=== PATIENT | male | born 1950 | race Caucasian/White ===

== ENCOUNTER 2019-05-13 23:51 | Inpatient (IN) ==
[2019-05-13] MEDS ORDERED: Tdap (Boostrix) Vaccine 0.5 ML SYRINGE IM ONE (23:59)
[2019-05-14 01:11] LABS: Basophils % 0.5 %; Eosinophils # 0.1 K/mcL (0.0-0.6); Eosinophils % 1.9 %; Hemoglobin 18.1 g/dL (12.9-16.9); Immature Granulocytes % 0.3 % (0-4); Lymphocytes # 2.4 K/mcL (0.6-4.6); Lymphocytes % 41.9 %; Mean Corpuscular HGB Conc 36.2 g/dL (31.6-35.5); Mean Corpuscular Hemoglobin 38.2 pg (28.0-33.3); Mean Corpuscular Volume 105.5 fL (83.0-100.0); Mean Platelet Volume 10.4 fL (9.4-12.4); Monocytes # 0.5 K/mcL (0.0-1.3); Monocytes % 8.4 %; Neutrophils # 2.7 K/mcL (1.6-8.9); Platelet Count 184 K/mcL (140-400); Red Blood Count 4.74 M/mcL (4.19-5.50); Red Cell Distribution Width 13.6 % (11.5-14.5); White Blood Count 5.7 K/mcL (4.3-11.1)
[2019-05-14 01:29] LABS: Amphetamine Screen,Urine Negative ng/mL (Cutoff=1000); Barbiturate Screen,Urine Negative ng/mL (Cutoff=200); Benzodiazepines Screen,Urine Negative ng/mL (Cutoff=200); Cannabinoid Screen,Urine Negative ng/mL (Cutoff = 50); Cocaine Screen,Urine Negative ng/mL (Cutoff= 300); Opiate Screen,Urine Negative ng/mL (Cutoff=300); Phencyclidine Screen,Urine Negative ng/mL (Cutoff=25)
[2019-05-14 01:33] LABS: BUN/Creatinine Ratio 7 (6-26); Blood Urea Nitrogen 6 mg/dL (8-23); Calcium 8.9 mg/dL (8.6-10.3); Carbon Dioxide 22 mEq/L (23-29); Chloride 103 mEq/L (98-107); Ethanol 260 mg/dL (Less than 10); Glucose 102 mg/dL (70-105); Osmolality,Calculated 278 (280-300); Sodium 135 mEq/L (136-145); Troponin I < 0.03 ng/mL (< 0.04); eGFR For African Americans > 60 (> 60); eGFR For Non-African Americans > 60 (> 60)
[2019-05-14 01:45] LABS: INR 0.9; Prothrombin Time 9.9 Seconds (9.4-12.1)
[2019-05-14] MEDS ORDERED: *HR* LORazepam 2 MG/ML VIAL IM PRN (13:03)
[2019-05-14] MEDS ORDERED: traZODone 50 MG TABLET PO PRN (13:03)
[2019-05-14] MEDS ORDERED: hydrOXYzine pamoate 25 MG CAPSULE PO PRN (13:03)
[2019-05-14] MEDS ORDERED: Acetaminophen 325 MG TABLET PO PRN (13:03)
[2019-05-14] MEDS ORDERED: *HR* LORazepam 1 MG TABLET PO PRN (13:03)
[2019-05-14] MEDS ORDERED: Haloperidol Lactate 5 MG/ML VIAL IM PRN (13:03)
[2019-05-14] MEDS ORDERED: Mag Hydrox/Al Hydrox/Simeth 30 ML UDC PO PRN (13:03)
[2019-05-14] MEDS ORDERED: MOM Conc 10 ML UD.LIQ PO PRN (13:03)
[2019-05-14] MEDS ORDERED: Ondansetron ODT 4 MG TAB.RAPDIS SL ONE (13:09)
[2019-05-14] MEDS: *HR* LORazepam 1 MG TABLET PO SCH ×2 (14:46→20:26)
[2019-05-15] MEDS: *HR* LORazepam 1 MG TABLET PO SCH ×2 (15:21→21:15)
[2019-05-16 09:09] VITALS: BP 162/82
[2019-05-16] MEDS: *HR* LORazepam 1 MG TABLET PO SCH (09:12)
== END 2019-05-16 14:00 | disposition home or self-care (01) | DRG 885 ==
LOC: 1ANU 23:51 → EMEROOARM 23:51 → 1ANU 05-14 14:10
PROVIDERS: ADMIT Psychiatry & Neurology Forensic Psychiatry; ATTEND Psychiatry & Neurology Forensic Psychiatry

== ENCOUNTER 2020-01-31 19:53 | Inpatient (IN) ==
[2020-01-31] MEDS ORDERED: Thiamine (B-1) 100 MG, Folic Acid 1 MG, MVI, adult with vitamin K 10 ML in 0.9 % Sodi... IVPB ONE (20:20)
[2020-01-31 20:46] LABS: Basophils % 0.2 %; Immature Granulocytes % 0.5 % (0-4); Mean Corpuscular HGB Conc 34.8 g/dL (31.6-35.5); Mean Corpuscular Hemoglobin 35.6 pg (28.0-33.3); Red Cell Distribution Width 12.7 % (11.5-14.5)
[2020-01-31 20:48] LABS: Hematocrit 51.7 % (37.5-50.1); Immature Platelets 14.8 % (1.1-6.1); Lymphocytes # 1.5 K/mcL (0.6-4.6); Lymphocytes % 9.9 %; Mean Corpuscular Volume 102.4 fL (83.0-100.0); Mean Platelet Volume 11.6 fL (9.4-12.4); Monocytes % 6.9 %; Neutrophils # 12.1 K/mcL (1.6-8.9); Platelet Count 118 K/mcL (140-400); Red Blood Count 5.05 M/mcL (4.19-5.50); Segmented Neutrophils % 82.5 %; White Blood Count 14.7 K/mcL (4.3-11.1)
[2020-01-31 20:51] LABS: VBG HCO3 28 mEq/L (21-27); VBG PCO2 52 mmHg (41-51); VBG PH 7.34 pH Units (7.32-7.42); VBG PO2 43 mmHg (25-50)
[2020-01-31 20:51] LABS: INR 1.1
[2020-01-31 20:54] LABS: Activated Partial Thrombo Time 33.1 Seconds (26.0-36.0)
[2020-01-31 21:05] LABS: Bilirubin,Urine Negative (Negative); Blood,Urine Moderate (Negative); Clarity,Urine Clear (Clear); Color,Urine Yellow (Yellow); Glucose,Urine (UA) Normal (Normal); Ketones,Urine 60 mg/dL (Negative); Leukocyte Esterase,Urine Negative (Negative); Mucus,Urine Few per lpf (None-Few); Nitrite,Urine Negative (Negative); PH,Urine 5.5 pH Units (5.0-8.0); Protein,Urine 70 mg/dL (Neg-Trace); RBC,Urine 15-30 per hpf (0-3); Specific Gravity,Urine > 1.030 (1.010-1.025); WBC,Urine 0-3 per hpf (0-3)
[2020-01-31 21:10] LABS: Platelet Estimate Normal (Normal)
[2020-01-31] MEDS ORDERED: 0.9 % Sodium Chloride 1,000 ML IVC ONE (21:10)
[2020-01-31 21:12] LABS: Amphetamine Screen,Urine Negative ng/mL (Cutoff=1000); Barbiturate Screen,Urine Negative ng/mL (Cutoff=200); Benzodiazepines Screen,Urine Negative ng/mL (Cutoff=200); Cannabinoid Screen,Urine Negative ng/mL (Cutoff = 50); Cocaine Screen,Urine Negative ng/mL (Cutoff= 300); Opiate Screen,Urine Negative ng/mL (Cutoff=300); Phencyclidine Screen,Urine Negative ng/mL (Cutoff=25)
[2020-01-31 21:12] LABS: Alanine Aminotransferase 88 Units/L (7-52); Albumin 4.6 g/dL (3.5-5.7); Albumin/Globulin Ratio 1.2 (1.1-2.2); Alkaline Phosphatase 77 Units/L (34-104); Aspartate Amino Transferase 88 Units/L (13-39); BUN/Creatinine Ratio 24 (6-26); Bilirubin,Direct 0.1 mg/dL (0.0-0.2); Bilirubin,Indirect 0.9 mg/dL (0.0-1.0); Blood Urea Nitrogen 22 mg/dL (8-23); Calcium 10.1 mg/dL (8.6-10.3); Carbon Dioxide 25 mEq/L (23-29); Chloride 99 mEq/L (98-107); Ethanol < 10 mg/dL (Less than 10); Globulin 3.8 g/dL (2.4-3.5); Glucose 126 mg/dL (70-105); Magnesium 2.1 mg/dL (1.6-2.6); Osmolality,Calculated 287 (280-300); Potassium 4.9 mEq/L (3.5-5.1); Sodium 136 mEq/L (136-145); Total Protein 8.4 g/dL (6.4-8.9); eGFR For African Americans > 60 (> 60); eGFR For Non-African Americans > 60 (> 60)
[2020-01-31] MEDS ORDERED: Aspirin 81 MG TAB.CHEW PO ONE (21:44)
[2020-01-31] MEDS ORDERED: Naloxone 0.4 MG/ML INJ IVP PRN ×2 (23:35→23:50)
[2020-02-01] MEDS ORDERED: *HR* LORazepam 2 MG/ML VIAL IVP PRN ×6 (01:15→16:54)
[2020-02-01] MEDS ORDERED: Naloxone 0.4 MG/ML INJ IVP PRN (01:26)
[2020-02-01] MEDS ORDERED: 0.9 % Sodium Chloride 1,000 ML IVC SCH (02:30)
[2020-02-01 05:55] LABS: Basophils % 0.2 %; Eosinophils % 0.2 %; Hematocrit 45.1 % (37.5-50.1); Hemoglobin 15.4 g/dL (12.9-16.9); Immature Granulocytes % 0.4 % (0-4); Immature Platelets 14.4 % (1.1-6.1); Lymphocytes # 2.3 K/mcL (0.6-4.6); Lymphocytes % 16.6 %; Mean Corpuscular HGB Conc 34.1 g/dL (31.6-35.5); Mean Corpuscular Hemoglobin 35.5 pg (28.0-33.3); Mean Corpuscular Volume 103.9 fL (83.0-100.0); Monocytes # 1.2 K/mcL (0.0-1.3); Red Blood Count 4.34 M/mcL (4.19-5.50); Red Cell Distribution Width 12.7 % (11.5-14.5); Segmented Neutrophils % 73.6 %; White Blood Count 13.8 K/mcL (4.3-11.1)
[2020-02-01] MEDS ORDERED: *HR* Enoxaparin 40 MG/0.4 ML SYRINGE SQ SCH (06:00)
[2020-02-01 06:23] LABS: Alanine Aminotransferase 59 Units/L (7-52); Albumin 3.9 g/dL (3.5-5.7); Albumin/Globulin Ratio 1.4 (1.1-2.2); Alkaline Phosphatase 61 Units/L (34-104); Aspartate Amino Transferase 48 Units/L (13-39); BUN/Creatinine Ratio 23 (6-26); Bilirubin,Total 1.2 mg/dL (0.3-1.0); Blood Urea Nitrogen 20 mg/dL (8-23); Calcium 9.1 mg/dL (8.6-10.3); Carbon Dioxide 23 mEq/L (23-29); Chloride 105 mEq/L (98-107); Globulin 2.8 g/dL (2.4-3.5); Glucose 108 mg/dL (70-105); Osmolality,Calculated 291 (280-300); Sodium 139 mEq/L (136-145); Total Protein 6.7 g/dL (6.4-8.9); eGFR For African Americans > 60 (> 60); eGFR For Non-African Americans > 60 (> 60)
[2020-02-01] MEDS ORDERED: *HR* Heparin 5,000 UNIT/ML VIAL IVP ONE (06:26)
[2020-02-01] MEDS ORDERED: *HR* Heparin 5,000 UNIT/ML VIAL IVP PRN ×2 (06:26)
[2020-02-01 06:35] LABS: Neutrophils # 10.2 K/mcL (1.6-8.9); Platelet Count 97 K/mcL (140-400)
[2020-02-01 06:36] LABS: Platelet Estimate Slight Decrease (Normal)
[2020-02-01 06:37] LABS: Folate > 22.3 ng/mL (3.0-16.0); Vitamin B12 645 pg/mL (250-1100)
[2020-02-01] MEDS ORDERED: Perflutren Lipid Microsphere 1.3 ML in 0.9 % Sodium Chloride 8.7 ML IVP PRN (06:51)
[2020-02-01] MEDS: Heparin 25,000UNIT/250ML 1/2NS 25,000 UNIT/250 ML IV.SOLN IVC SCH (07:17)
[2020-02-01 07:39] LABS: Heparin anti-factor XA UFH 0.24 IU/mL (0.30-0.70); INR 1.1; Prothrombin Time 12.7 Seconds (9.4-12.1)
[2020-02-01 08:02] LABS: Hematocrit 46.2 % (37.5-50.1); Hemoglobin 15.7 g/dL (12.9-16.9); Mean Corpuscular Hemoglobin 35.8 pg (28.0-33.3); Mean Corpuscular Volume 105.5 fL (83.0-100.0); Mean Platelet Volume 11.8 fL (9.4-12.4); Platelet Count 103 K/mcL (140-400); Red Blood Count 4.38 M/mcL (4.19-5.50); Red Cell Distribution Width 12.7 % (11.5-14.5); White Blood Count 12.9 K/mcL (4.3-11.1)
[2020-02-01] MEDS: Nicotine 21 MG PATCH.TD24 TD SCH (08:30)
[2020-02-01] MEDS: Aspirin 81 MG TAB.CHEW PO SCH (12:13)
[2020-02-01] MEDS: 0.9 % Sodium Chloride 1,000 ML IVC SCH (17:01)
[2020-02-01] MEDS: Thiamine (B-1) 100 MG, Folic Acid 1 MG, MVI, adult with vitamin K 10 ML in 0.9 % Sodi... IVPB SCH (18:26)
[2020-02-02] MEDS: 0.9 % Sodium Chloride 1,000 ML IVC SCH (02:12)
[2020-02-02 04:15] LABS: Eosinophils % 0.2 %; Mean Platelet Volume 11.6 fL (9.4-12.4); Monocytes % 8.2 %
[2020-02-02 04:17] LABS: Basophils % 0.2 %; Hematocrit 42.5 % (37.5-50.1); Hemoglobin 14.8 g/dL (12.9-16.9); Immature Granulocytes % 0.5 % (0-4); Immature Platelets 11.7 % (1.1-6.1); Lymphocytes # 1.8 K/mcL (0.6-4.6); Lymphocytes % 14.6 %; Mean Corpuscular HGB Conc 34.8 g/dL (31.6-35.5); Mean Corpuscular Hemoglobin 36.3 pg (28.0-33.3); Mean Corpuscular Volume 104.2 fL (83.0-100.0); Neutrophils # 9.2 K/mcL (1.6-8.9); Platelet Count 107 K/mcL (140-400); Red Blood Count 4.08 M/mcL (4.19-5.50); Red Cell Distribution Width 12.5 % (11.5-14.5); Segmented Neutrophils % 76.3 %; White Blood Count 12.1 K/mcL (4.3-11.1)
[2020-02-02 04:38] LABS: BUN/Creatinine Ratio 16 (6-26); Blood Urea Nitrogen 13 mg/dL (8-23); Calcium 8.9 mg/dL (8.6-10.3); Carbon Dioxide 21 mEq/L (23-29); Chloride 103 mEq/L (98-107); Glucose 99 mg/dL (70-105); Magnesium 1.8 mg/dL (1.6-2.6); Osmolality,Calculated 280 (280-300); Phosphorous 3.1 mg/dL (2.7-4.5); Potassium 3.4 mEq/L (3.5-5.1); Sodium 135 mEq/L (136-145); eGFR For African Americans > 60 (> 60); eGFR For Non-African Americans > 60 (> 60)
[2020-02-02] MEDS ORDERED: lisinopriL 20 MG TABLET PO SCH (09:00)
[2020-02-02 11:19] LABS: Estimated Average Glucose 114 mg/dl
[2020-02-02] MEDS: Aspirin 81 MG TAB.CHEW PO SCH (11:40)
[2020-02-02] MEDS: Nicotine 21 MG PATCH.TD24 TD SCH (11:40)
[2020-02-02] MEDS: amLODIPine 5 MG TABLET PO SCH (11:40)
[2020-02-02] MEDS: *HR* Heparin 5,000 UNIT/ML VIAL SQ SCH (18:15)
[2020-02-02] MEDS: carvediloL 6.25 MG TABLET PO SCH (18:21)
[2020-02-02] MEDS: Thiamine (B-1) 100 MG, Folic Acid 1 MG, MVI, adult with vitamin K 10 ML in 0.9 % Sodi... IVPB SCH (19:40)
[2020-02-02] MEDS: Heparin 25,000UNIT/250ML 1/2NS 25,000 UNIT/250 ML IV.SOLN IVC SCH (21:31)
[2020-02-03 05:23] LABS: Basophils # 0.1 K/mcL (0.0-0.2); Basophils % 0.6 %; Eosinophils # 0.1 K/mcL (0.0-0.6); Eosinophils % 0.5 %; Hematocrit 40.4 % (37.5-50.1); Hemoglobin 14.2 g/dL (12.9-16.9); Immature Granulocytes % 0.9 % (0-4); Lymphocytes % 27.6 %; Mean Corpuscular HGB Conc 35.1 g/dL (31.6-35.5); Mean Corpuscular Hemoglobin 35.5 pg (28.0-33.3); Mean Platelet Volume 12.4 fL (9.4-12.4); Monocytes # 1.1 K/mcL (0.0-1.3); Monocytes % 10.1 %; Neutrophils # 6.6 K/mcL (1.6-8.9); Nucleated Red Blood Cells 0.2 /100 WBC (0); Platelet Count 117 K/mcL (140-400); Red Cell Distribution Width 12.4 % (11.5-14.5); Segmented Neutrophils % 60.3 %
[2020-02-03 05:43] LABS: BUN/Creatinine Ratio 16 (6-26); Blood Urea Nitrogen 12 mg/dL (8-23); Calcium 8.4 mg/dL (8.6-10.3); Carbon Dioxide 17 mEq/L (23-29); Chloride 104 mEq/L (98-107); Glucose 82 mg/dL (70-105); Magnesium 1.9 mg/dL (1.6-2.6); Osmolality,Calculated 279 (280-300); Potassium 3.7 mEq/L (3.5-5.1); Sodium 135 mEq/L (136-145); eGFR For African Americans > 60 (> 60); eGFR For Non-African Americans > 60 (> 60)
[2020-02-03] MEDS: *HR* Heparin 5,000 UNIT/ML VIAL SQ SCH ×2 (05:46→17:05)
[2020-02-03] MEDS ORDERED: Erythromycin OPTH Oint BOTH EYES SCH (09:00)
[2020-02-03] MEDS: Erythromycin OPTH Oint BOTH EYES SCH ×4 (10:05→20:05)
[2020-02-03] MEDS: amLODIPine 5 MG TABLET PO SCH (10:06)
[2020-02-03] MEDS: carvediloL 6.25 MG TABLET PO SCH ×2 (10:06→17:04)
[2020-02-03] MEDS: Aspirin 81 MG TAB.CHEW PO SCH (10:06)
[2020-02-03] MEDS: BuPROPion SR (12 HR) 150 MG TABLET PO SCH ×2 (10:06→20:05)
[2020-02-03] MEDS: Nicotine 21 MG PATCH.TD24 TD SCH (10:07)
[2020-02-04] MEDS: *HR* Heparin 5,000 UNIT/ML VIAL SQ SCH ×2 (05:37→16:21)
[2020-02-04] MEDS: BuPROPion SR (12 HR) 150 MG TABLET PO SCH ×2 (10:08→21:25)
[2020-02-04] MEDS: Nicotine 21 MG PATCH.TD24 TD SCH (10:08)
[2020-02-04] MEDS: amLODIPine 5 MG TABLET PO SCH (10:08)
[2020-02-04] MEDS: carvediloL 6.25 MG TABLET PO SCH ×2 (10:08→16:32)
[2020-02-04] MEDS: Aspirin 81 MG TAB.CHEW PO SCH (10:08)
[2020-02-04] MEDS: Erythromycin OPTH Oint BOTH EYES SCH ×3 (10:09→21:26)
[2020-02-04] MEDS ORDERED: Ondansetron 4 MG/2 ML VIAL IVP PRN (16:06)
[2020-02-04] MEDS ORDERED: Acetaminophen 325 MG TABLET PO PRN (21:23)
[2020-02-04] MEDS ORDERED: Ketorolac 15 MG/ML VIAL IVP PRN (21:24)
[2020-02-05] MEDS: *HR* Heparin 5,000 UNIT/ML VIAL SQ SCH ×2 (05:30→16:08)
[2020-02-05] MEDS: BuPROPion SR (12 HR) 150 MG TABLET PO SCH ×2 (08:53→20:27)
[2020-02-05] MEDS: carvediloL 6.25 MG TABLET PO SCH ×2 (08:53→16:08)
[2020-02-05] MEDS: Nicotine 21 MG PATCH.TD24 TD SCH (08:54)
[2020-02-05] MEDS: Aspirin 81 MG TAB.CHEW PO SCH (08:54)
[2020-02-05] MEDS: Erythromycin OPTH Oint BOTH EYES SCH ×3 (08:56→20:29)
[2020-02-05] MEDS: amLODIPine 5 MG TABLET PO SCH (08:59)
[2020-02-06 05:33] LABS: Basophils # 0.1 K/mcL (0.0-0.2); Basophils % 0.8 %; Eosinophils # 0.2 K/mcL (0.0-0.6); Eosinophils % 1.9 %; Hematocrit 40.7 % (37.5-50.1); Hemoglobin 13.9 g/dL (12.9-16.9); Lymphocytes # 3.1 K/mcL (0.6-4.6); Lymphocytes % 35.1 %; Mean Corpuscular HGB Conc 34.2 g/dL (31.6-35.5); Mean Corpuscular Hemoglobin 34.9 pg (28.0-33.3); Mean Corpuscular Volume 102.3 fL (83.0-100.0); Mean Platelet Volume 10.3 fL (9.4-12.4); Monocytes # 0.8 K/mcL (0.0-1.3); Monocytes % 9.4 %; Neutrophils # 4.6 K/mcL (1.6-8.9); Platelet Count 232 K/mcL (140-400); Red Blood Count 3.98 M/mcL (4.19-5.50); Red Cell Distribution Width 12.3 % (11.5-14.5); Segmented Neutrophils % 51.8 %; White Blood Count 8.8 K/mcL (4.3-11.1)
[2020-02-06] MEDS: *HR* Heparin 5,000 UNIT/ML VIAL SQ SCH ×2 (06:10→16:44)
[2020-02-06 06:45] LABS: BUN/Creatinine Ratio 13 (6-26); Blood Urea Nitrogen 13 mg/dL (8-23); Calcium 8.8 mg/dL (8.6-10.3); Carbon Dioxide 29 mEq/L (23-29); Chloride 102 mEq/L (98-107); Glucose 107 mg/dL (70-105); Osmolality,Calculated 285 (280-300); Potassium 3.2 mEq/L (3.5-5.1); Sodium 137 mEq/L (136-145); eGFR For African Americans > 60 (> 60); eGFR For Non-African Americans > 60 (> 60)
[2020-02-06] MEDS ORDERED: Potassium Chloride Elixir 20 MEQ/15 ML UDC PO ONE (07:35)
[2020-02-06] MEDS: Nicotine 21 MG PATCH.TD24 TD SCH (07:50)
[2020-02-06] MEDS: amLODIPine 5 MG TABLET PO SCH (07:50)
[2020-02-06] MEDS: Aspirin 81 MG TAB.CHEW PO SCH (07:50)
[2020-02-06] MEDS: carvediloL 6.25 MG TABLET PO SCH ×2 (07:50→16:41)
[2020-02-06] MEDS: BuPROPion SR (12 HR) 150 MG TABLET PO SCH (07:50)
[2020-02-06] MEDS: Erythromycin OPTH Oint BOTH EYES SCH ×2 (07:51→15:15)
[2020-02-06 14:58] VITALS: BP 158/83
== END 2020-02-06 17:25 | DRG 64 ==
LOC: EMEROOARM 19:53 → 3ANU 19:53 → SUATTDRO 22:53 → 3ANU 02-01 00:18
PROVIDERS: ADMIT Family Medicine; ATTEND Internal Medicine